=== PATIENT | female | born 1980 | race African-American/Black ===

== ENCOUNTER 2016-10-09 11:09 | Emergency (ER) | payer MEDICAID ==
[2016-10-09] MEDS ORDERED: IBUPROFEN 600 MG TABLET PO ONE (11:53)
--- NOTE | 2016-10-09 11:55 | ER Document Report ---
ED Medical Screen (RME) - General Chief Complaint: Flank Pain Stated Complaint: SIDE PAIN Mode of Arrival: Ambulatory Information source: Patient Notes: This is a 36-year-old female with 2 or 3 days history of worsening left flank pain. She states the pain is radiating to her left lower quadrant of her abdomen and sometimes she has pelvic pain and pressure is worse when she urinates. No fevers or chills. She is tolerating po however she has had some nausea. Bowel movements been normal. I have greeted and performed a rapid initial assessment of this patient. A comprehensive ED assessment and evaluation of the patient, analysis of test results and completion of the medical decision making process will be conducted by additional ED providers. TRAVEL OUTSIDE OF THE [place] IN LAST 30 DAYS: No - Related Data Allergies/Adverse Reactions: No Known Allergies Allergy (Verified 03/28/16 11:43) Past Medical History Renal/ Medical History: Denies: Hx Peritoneal Dialysis Physical Exam - Vital signs Vitals: Temp Pulse Resp BP Pulse Ox 98.6 F 81 20 132/87 H 99 10/09/16 11:16 10/09/16 11:16 10/09/16 11:16 10/09/16 11:16 10/09/16 11:16 Course - Vital Signs Vital signs: Temp Pulse Resp BP Pulse Ox 97.6 F 75 18 115/71 99 10/09/16 15:54 10/09/16 15:54 10/09/16 15:54 10/09/16 15:54 10/09/16 15:54 - Laboratory Result Diagrams: 10/09/16 12:00 10/09/16 12:00 Laboratory results interpreted by me: 10/09/16 12:00 MCH 26.5 L RDW 17.0 H Doctor's Discharge - Discharge Clinical Impression: Left-sided low back pain with left-sided sciatica Qualifiers: Chronicity: acute Qualified Code(s): M54.42 - Lumbago with sciatica, left side Condition: Good Disposition: HOME, SELF-CARE Additional Instructions: Come back immediately with any increased pain, change in location or quality of pain, fevers, vomiting, diarrhea, shortness of breath, weakness, numbness, or incontinence. Please make sure that you take the Motrin along with the pain medications that we have discussed. Prescriptions: Hydrocodone/Acetaminophen [Man 5-325 Tablet] 1 each PO Q6 PRN #12 tablet PRN Reason: For Pain Forms: Parent Work Note, Return to Work
[2016-10-09 12:26] LABS: ABSOLUTE BASOPHILS # (AUTO) 0.1 10^3/uL (0.0-0.2); ABSOLUTE EOSINOPHILS # (AUTO) 0.2 10^3/uL (0.0-0.6); ABSOLUTE LYMPHOCYTES (AUTO) 2.7 10^3/uL (0.5-4.7); ABSOLUTE MONOCYTES (AUTO) 0.4 10^3/uL (0.1-1.4); ABSOLUTE NEUT (AUTO) 2.8 10^3/uL (1.7-8.2); BASOPHILS % (AUTO) 1.1 % (0-2); EOSINOPHILS % (AUTO) 2.6 % (0-6); HEMATOCRIT 38.2 % (36.0-47.0); HEMOGLOBIN 12.8 g/dL (12.0-15.5); HGB HCT DIFFERENCE 0.2; LYMPHOCYTES % (AUTO) 43.2 % (13-45); MEAN CORPUSCULAR HEMOGLOBIN 26.5 pg (27.0-33.4); MEAN CORPUSCULAR HGB CONC 33.3 g/dL (32.0-36.0); MEAN CORPUSCULAR VOLUME 80 fl (80-97); MONOCYTES % (AUTO) 7.1 % (3-13); WHITE BLOOD COUNT 6.2 10^3/uL (4.0-10.5)
[2016-10-09 12:30] LABS: APPEARANCE,URINE CLEAR; BILIRUBIN,URINE NEGATIVE (NEGATIVE); GLUCOSE, URINE NEGATIVE (NEGATIVE); KETONES,URINE NEGATIVE (NEGATIVE); LEUKOCYTE ESTERASE,URINE NEGATIVE (NEGATIVE); NITRITE,URINE NEGATIVE (NEGATIVE); PROTEIN,URINE NEGATIVE (NEGATIVE); URINE SPECIFIC GRAVITY 1.011; UROBILINOGEN,URINE NEGATIVE mg/dL (<2.0)
[2016-10-09 12:38] LABS: ALANINE AMINOTRANSFERASE 27 U/L (9-52); ALBUMIN 4.2 g/dL (3.5-5.0); ALKALINE PHOSPHATASE 59 U/L (38-126); ANION GAP 13 (5-19); ASPARTATE AMINO TRANSFERASE 19 U/L (14-36); BILIRUBIN,DIRECT 0.1 mg/dL (0.0-0.4); BILIRUBIN,TOTAL 0.4 mg/dL (0.2-1.3); BLOOD UREA NITROGEN 9 mg/dL (7-20); CALCIUM 9.5 mg/dL (8.4-10.2); CARBON DIOXIDE 25 mmol/L (22-30); CHLORIDE 107 mmol/L (98-107); CREATININE RESULT 0.64 mg/dL (0.52-1.25); GLUCOSE 110 mg/dL (75-110); POTASSIUM 4.4 mmol/L (3.6-5.0); SODIUM 144.5 mmol/L (137-145); TOTAL PROTEIN 7.6 g/dL (6.3-8.2)
[2016-10-09] MEDS ORDERED: OXYCODONE-ACETAMINOPHEN 5-325 MG TABLET PO ONE (12:59)
--- NOTE | 2016-10-09 13:16 | ER Document Report ---
ED GI/ - General Chief Complaint: Flank Pain Stated Complaint: SIDE PAIN Mode of Arrival: Ambulatory Information source: Patient Notes: Patient is a 36-year-old female that presents today with the onset around 3-4 days ago of some intermittent left-sided flank "pain". She states there is some mild radiation down the left anterior thigh. She states nausea without vomiting, fevers, diarrhea, or dysuria. She denies any previous history. She denies any weakness of her legs. She denies any incontinence. TRAVEL OUTSIDE OF THE [place] IN LAST 30 DAYS: No - HPI Patient complains to provider of: Flank pain Onset: Other - See above Timing/Duration: Gradual Quality of pain: Achy, Dull Severity at maximum: Moderate Severity in ED: Moderate Pain Level: 2 Location: Other - See above Vaginal bleeding (Compared to normal period): None Sexual history: Active Associated symptoms: Other - See above Exacerbated by: Denies Relieved by: Denies Similar symptoms previously: No Recently seen / treated by doctor: No - Related Data Allergies/Adverse Reactions: No Known Allergies Allergy (Verified 03/28/16 11:43) Past Medical History - General Information source: Patient - Social History Smoking Status: Current Every Day Smoker Cigarette use (# per day): No Chew tobacco use (# tins/day): No Smoking Education Provided: No Frequency of alcohol use: None Drug Abuse: None Family History: Reviewed & Not Pertinent Renal/ Medical History: Denies: Hx Peritoneal Dialysis Past Surgical History: Reports: Hx Cholecystectomy - Immunizations Hx Diphtheria, Pertussis, Tetanus Vaccination: Yes Review of Systems - Review of Systems Constitutional: denies: Fever EENT: denies: Eye discharge, Nose discharge Cardiovascular: denies: Chest pain, Palpitations Respiratory: denies: Short of breath Gastrointestinal: denies: Diarrhea, Vomiting Genitourinary: denies: Dysuria Musculoskeletal: denies: Leg swelling Skin: Other - no hives. denies: Rash Neurological/Psychological: Other - no slurred speech -: Yes All other systems reviewed and negative Physical Exam - Vital signs Vitals: Temp Pulse Resp BP Pulse Ox 98.6 F 81 20 132/87 H 99 10/09/16 11:16 10/09/16 11:16 10/09/16 11:16 10/09/16 11:16 10/09/16 11:16 Notes: Reviewed vital signs and nursing note as charted by RN. CONSTITUTIONAL: Alert and oriented and responds appropriately to questions. Well -appearing; well-nourished HEAD: Normocephalic; atraumatic CARD: Regular rate and rhythm; no murmurs, no clicks, no rubs, no gallops; symmetric distal pulses RESP: Normal chest excursion without splinting or tachypnea; breath sounds clear and equal bilaterally; no wheezes, no rhonchi, no rales ABD/GI: Normal bowel sounds; non-distended; soft, non-tender to deep palpation of all 4 quadrants of the abdomen BACK: The back appears normal and is non-tender to palpation, left-sided CVA tenderness without swelling, induration, or erythema. EXT: Normal ROM in all joints; non-tender to palpation; no erythema, no edema SKIN: Normal color for age and race; warm; dry; good turgor; capillary refill < 2 seconds; no acute lesions noted NEURO: 5 out of 5 bilateral lower extremity strength without foot drop. Sensation intact to light touch. PSYCH: The patient's mood and manner are appropriate. Grooming and personal hygiene are appropriate. Course - Re-evaluation Re-evalutation: 10/09/16 13:16 Given the history and physical examination we will order basic labs, urinalysis , test, as well as a CT scan noncontrast renal colic protocol. I would like to evaluate for possible urinary tract infection or kidney stone initially. Patient has no shortness of breath or cough leading me to believe her lower lobe pneumonia or pulmonary embolism. Patient has no weakness to the lower extremity or incontinence to suggest cord compression. 10/09/16 15:[address] as recorded. Normal white blood cell count. No obvious urinary tract infection. The patient is not . After the pain medications the patient states her pain is much improved. There is no change in location and her abdomen is still nontender. Given the history and physical examination with left back pain, that radiates down the front of her leg, with the CT scan as recorded, I believe that the patient may have a more musculoskeletal etiology to her pain. I have explained strict return precautions which the patient understands and a provided pain medications. - Vital Signs Vital signs: Temp Pulse Resp BP Pulse Ox 98.6 F 81 20 132/87 H 99 10/09/16 11:16 10/09/16 11:16 10/09/16 11:16 10/09/16 11:16 10/09/16 11:16 - Laboratory Result Diagrams: 10/09/16 12:00 10/09/16 12:00 Laboratory results interpreted by me: 10/09/16 12:00 MCH 26.5 L RDW 17.0 H Discharge - Discharge Clinical Impression: Left-sided low back pain with left-sided sciatica Qualifiers: Chronicity: acute Qualified Code(s): M54.42 - Lumbago with sciatica, left side Condition: Good Disposition: HOME, SELF-CARE Additional Instructions: Come back immediately with any increased pain, change in location or quality of pain, fevers, vomiting, diarrhea, shortness of breath, weakness, numbness, or incontinence. Please make sure that you take the Motrin along with the pain medications that we have discussed. Prescriptions: Hydrocodone/Acetaminophen [S[place]ita 5-325 Tablet] 1 each PO Q6 PRN #12 tablet PRN Reason: For Pain
[2016-10-09 16:58] VITALS: BP 115/71
== END 2016-10-09 16:05 | disposition home or self-care (01) ==
LOC: ER 11:09
DX: M54.42 Lumbago with sciatica, left side (principal); R10.9 Unspecified abdominal pain; F17.200 Nicotine dependence, unspecified, uncomplicated; Z90.49 Acquired absence of other specified parts of digestive tract
CPT/HCPCS: 36415; 76380; 80053; 81001; 81025; 85025; 99284

== ENCOUNTER 2017-05-23 17:37 | Emergency (ER) | payer OTHER ==
[2017-05-23] MEDS ORDERED: OXYCODONE-ACETAMINOPHEN 5-325 MG TABLET PO ONE (19:05)
[2017-05-23] MEDS ORDERED: ONDANSETRON 4 MG TAB.RAPDIS PO ONE (19:06)
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
[2017-05-23] MEDS ORDERED: KETOROLAC TROMETHAMINE 60 MG/2 ML SDV IM ONE (19:58)
[2017-05-23 20:57] VITALS: BP 147/98
== END 2017-05-23 21:12 | disposition home or self-care (01) ==
LOC: ER 17:37
DX: S16.1XXA Strain of muscle, fascia and tendon at neck level, initial encounter (principal); S29.019A Strain of muscle and tendon of unspecified wall of thorax, initial encounter; M54.6 Pain in thoracic spine; M54.2 Cervicalgia; V87.7XXA Person injured in collision between other specified motor vehicles (traffic), initial encounter; F17.200 Nicotine dependence, unspecified, uncomplicated
CPT/HCPCS: 99284; 96372; 72070; 72125; J1885; S0119

== ENCOUNTER 2017-12-06 12:23 | Emergency (ER) | payer MEDICAID, OTHER ==
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
--- NOTE | 2017-12-06 13:10 | ER Document Report ---
ED GI/ - General Chief Complaint: Vaginal Discharge Stated Complaint: POSSIBLE DISCHARGE Time Seen by Provider: 12/06/17 12:40 Mode of Arrival: Ambulatory Information source: Patient Notes: Patient is a 37-year-old female who presents to the ER today for thick vaginal discharge 1 day, left lower quadrant pelvic pain, concern for STDs. Patient states that she thinks her boyfriend may be cheating on her. She denies any fever, chills, nausea, vomiting, back pain, vaginal bleeding. TRAVEL OUTSIDE OF THE [place] IN LAST 30 DAYS: No - Related Data Allergies/Adverse Reactions: No Known Allergies Allergy (Verified 12/06/17 12:24) Past Medical History - General Information source: Patient - Social History Smoking Status: Current Every Day Smoker Chew tobacco use (# tins/day): No Frequency of alcohol use: None Drug Abuse: None Family History: Reviewed & Not Pertinent Patient has suicidal ideation: No Patient has homicidal ideation: No Renal/ Medical History: Denies: Hx Peritoneal Dialysis Past Surgical History: Reports: Hx Cholecystectomy - Immunizations Hx Diphtheria, Pertussis, Tetanus Vaccination: Yes Review of Systems - Review of Systems Constitutional: No symptoms reported EENT: No symptoms reported Cardiovascular: No symptoms reported Respiratory: No symptoms reported Gastrointestinal: No symptoms reported Genitourinary: No symptoms reported Female Genitourinary: See HPI Musculoskeletal: No symptoms reported Skin: No symptoms reported Hematologic/Lymphatic: No symptoms reported Neurological/Psychological: No symptoms reported Physical Exam - Vital signs Vitals: Temp Pulse Resp BP Pulse Ox 98.6 F 102 H 16 144/100 H 99 12/06/17 12:29 12/06/17 12:29 12/06/17 12:29 12/06/17 12:29 12/06/17 12:29 - Notes Notes: PHYSICAL EXAMINATION: GENERAL: Uncomfortable appearing, in no acute distress. HEAD: Atraumatic, normocephalic. EYES: Pupils equal round and reactive to light, extraocular movements intact, sclera anicteric, conjunctiva are normal. NECK: Normal range of motion, supple without lymphadenopathy LUNGS: CTAB and equal. No wheezes rales or rhonchi. HEART: Regular rate and rhythm without murmurs ABDOMEN: Soft, left lower quadrant tenderness. No guarding, no rebound BACK: no vertebral tenderness, normal ROM pelvic: Thick white vaginal discharge, increased tenderness to exam, + left adnexal tenderness, + cervical motion tenderness GI/: no CVA tenderness EXTREMITIES: Normal range of motion, no pitting edema. No cyanosis. NEUROLOGICAL: Cranial nerves grossly intact. Normal sensory/motor exams. PSYCH: Normal mood, normal affect. SKIN: Warm, Dry, normal turgor, no rashes or lesions noted Course - Re-evaluation Re-evalutation: 12/06/17 18:14 Patient is positive for trichomonas. Patient was treated for gonorrhea and chlamydia although after she left they both came back negative. Patient was given 250 mg of IM Rocephin and 1000 mg of oral azithromycin. Patient also started on Flagyl and doxycycline as she did have cervical motion tenderness and left adnexal tenderness with positive bacteria on her wet mount today and trichomonas. - Vital Signs Vital signs: Temp Pulse Resp BP Pulse Ox 98.7 F 98 20 138/90 H 100 12/06/17 15:13 12/06/17 15:13 12/06/17 15:13 12/06/17 15:13 12/06/17 15:13 - Laboratory Laboratory results interpreted by me: 12/06/17 12:56 Ur Leukocyte Esterase TRACE H Discharge - Discharge Clinical Impression: Trichomonal infection, Vaginal discharge Condition: Stable Disposition: HOME, SELF-CARE Additional Instructions: Return immediately for any new or worsening symptoms. Follow up with primary care provider, call tomorrow to make followup appointment. Prescriptions: Doxycycline Hyclate 100 mg PO BID #14 capsule Metronidazole [Flagyl 500 mg Tablet] 500 mg PO BID #14 tablet Forms: Return to Work
[2017-12-06 14:01] LABS: BACTERIA (WET MOUNT) 4+ BACTERIA SEEN; EPITHELIALS (WET MOUNT) 3+ EPITHELIALS SEEN; RBCS (WET MOUNT) FEW RBCS SEEN; T.VAGINALIS (WET MOUNT) TRICHOMONAS SEEN; WBCS (WET MOUNT) 1+ WBCS SEEN; YEAST (WET MOUNT) NO YEAST SEEN
[2017-12-06 14:01] LABS: APPEARANCE,URINE SLIGHTLY-CLOUDY; BILIRUBIN,URINE NEGATIVE (NEGATIVE); COLOR,URINE YELLOW; GLUCOSE, URINE NEGATIVE (NEGATIVE); KETONES,URINE NEGATIVE (NEGATIVE); LEUKOCYTE ESTERASE,URINE TRACE (NEGATIVE); NITRITE,URINE NEGATIVE (NEGATIVE); PROTEIN,URINE NEGATIVE (NEGATIVE); URINE SPECIFIC GRAVITY 1.015; UROBILINOGEN,URINE NEGATIVE mg/dL (<2.0)
[2017-12-06] MEDS ORDERED: LIDOCAINE 1% INJ-PF (10 MG/ML) 30 ML SDV INJ ONE (14:10)
[2017-12-06] MEDS ORDERED: CEFTRIAXONE INJ 250 MG VIAL IM ONE (14:10)
[2017-12-06] MEDS ORDERED: AZITHROMYCIN 250 MG TABLET PO ONE (14:10)
[2017-12-06 15:17] VITALS: BP 138/90
[2017-12-06 15:35] LABS: CHLAM PCR NOT DETECTED (NOT DETECT); GON PCR NOT DETECTED (NOT DETECT)
== END 2017-12-06 15:12 | disposition home or self-care (01) ==
LOC: ER 12:23
DX: A59.00 Urogenital trichomoniasis, unspecified (principal); R10.2 Pelvic and perineal pain; F17.200 Nicotine dependence, unspecified, uncomplicated; Z90.49 Acquired absence of other specified parts of digestive tract
CPT/HCPCS: 99283; 96372; 87210; 81025; 81001; 87491; 87591; Q0144; J3490; J0696